=== PATIENT | male | born 1995 | race Caucasian/White ===

== ENCOUNTER 2016-10-28 21:39 | Observation (INO) | payer OTHER ==
[~2016-10-28] VITALS: Ht 182.9 cm; Wt 78.0 kg
[2016-10-28] MEDS ORDERED: FAMOTIDINE IV INJ 20 MG in DEXTROSE 5% 100ML 100 ML IV STA (22:01)
[2016-10-28] MEDS ORDERED: SODIUM CHLORIDE 0.9% 1000ML 2,000 ML IV STA (22:01)
[2016-10-28] MEDS ORDERED: ONDANSETRON INJ 2 MG/ML 2 ML VIAL IV STA (22:01)
[2016-10-28] MEDS ORDERED: MoRPHine SULFATE 4 MG/ML 1 ML CARP\\VIAL IV STA (22:03)
[2016-10-28] MEDS ORDERED: IBUP-1277 PO (22:05)
[2016-10-28] MEDS ORDERED: FAMOTIDINE 20MG/102 ML D5W ONE (22:27)
[2016-10-28 22:35] LABS: URINE APPEARANCE CLEAR (CLEAR); URINE BILIRUBIN NEG (NEG); URINE COLOR YELLOW; URINE NITRITE NEG (NEG); URINE SPECIFIC GRAVITY 1.021 (1.000-1.030); UROBILINOGEN NEG (NEG); ZZUR CULT IF INDIC CLEAN CATCH NO
[2016-10-28 22:35] LABS: BASO % 0.1 %; BASO ABS # 0.02 K/uL (0-0.2); COMPLETE YES; EOS % 0.2 %; HEMATOCRIT 41.3 % (42-52); IG% 0.2 %; LYMPH % 7.6 %; LYMPH ABS # 1.16 K/uL (1.2-3.4); MEAN CELL VOLUME 87.3 fL (80-100); MEAN CORPUSCULAR HEMOGLOBIN 31.1 pg (25-34); MEAN CORPUSCULAR HGB CONC 35.6 g/dl (32-36); MEAN PLATELET VOLUME 9.7 fL (7.4-10.4); MONO % 9.3 %; NEUT % 82.6 %; PLATELET COUNT 232 K/uL (130-400); RED BLOOD COUNT 4.73 M/uL (4.7-6.1); WHITE BLOOD COUNT 15.33 K/uL (4.8-10.8)
[2016-10-28 22:36] LABS: MANUAL MICROSCOPIC REQUIRED? NO; REVIEW REQ? NO
[2016-10-28 23:00] LABS: BUN/CREATININE RATIO 11.8 (10-20); CALCIUM 9.3 mg/dl (8.5-10.1); CREATININE 1.2 mg/dl (0.60-1.40); POTASSIUM 3.3 mmol/L (3.5-5.1)
[2016-10-29] VITALS (9 sets, daily range): BP systolic 102–133; BP diastolic 56–75; PULSE 75–108; TEMP 36.8–37.8; O2SAT 87–97; Ht 182.9 cm; Wt 78.0 kg
[2016-10-29] MEDS ORDERED: POTASSIUM CHLORIDE 10 MEQ TABCR PO STA (00:11)
[2016-10-29] MEDS ORDERED: MoRPHine SULFATE 4 MG/ML 1 ML CARP\\VIAL IV STA ×2 (00:14→03:15)
[2016-10-29] MEDS ORDERED: OPTIRAY 320 IV PRN (02:00)
[2016-10-29] MEDS ORDERED: CEFOXITIN SOD 2 GM VIAL IV STA (02:51)
[2016-10-29] MEDS ORDERED: SODIUM CHLORIDE 0.9% 1000ML 1,000 ML IV STA (03:15)
[2016-10-29] MEDS ORDERED: MIDAZOLAM HCL 1 MG/ML 2ML VIAL ONE (03:17)
[2016-10-29] MEDS ORDERED: FENTANYL CITRATE INJ 50 MCG/1 ML 2 ML VIAL ONE (03:17)
[2016-10-29] MEDS ORDERED: KETOROLAC TROMETHAMINE 30 MG/ML VIAL IV. PRN (03:30)
[2016-10-29] MEDS ORDERED: ONDANSETRON INJ 2 MG/ML 2 ML VIAL IV PRN ×2 (03:30→04:00)
[2016-10-29] MEDS ORDERED: HYDROmorphone INJ 2 MG/ML SYR/VIAL IV PRN (03:30)
[2016-10-29] MEDS ORDERED: PROMETHAZINE HCL INJ 12.5 MG in SODIUM CHLORIDE 0.9% 50ML 50 ML IV PRN (03:30)
[2016-10-29] MEDS ORDERED: ATROPINE SULFATE 0.1 MG/ML 5ML SYR IV PRN (03:30)
--- NOTE | 2016-10-29 03:45 | EMERGENCY ROOM VISIT NOTE ---
History First contact with patient: 21:49 Chief Complaint: ABDOMINAL PAIN Stated Complaint: REALLY BAD STOMACH ACHE Nursing Triage Summary: ABD PAIN N/V History of Present Illness The patient is a 20 year old male who presents to the Emergency Room with complaints of nausea, vomiting and severe lower abdominal pain for the past day. Nothing makes the pain better or worse. He describes as aching, 8 out of 10. It does not radiate. Patient denies chest pain, dyspnea, fever, chills, diarrhea, back pain, testicular pain, penile pain. No history of similar symptoms in the past. He states he had abdominal surgery when he was child but is unsure why. Review of Systems See HPI for pertinent positives & negatives. A total of 10 systems reviewed and were otherwise negative. Past Medical/Surgical History None Social History Smoking Status: Never Smoker Smokeless Tobacco Use: No Alcohol Use: none Drug Use: none Occupation Status: [employer] student Current/Historical Medications Scheduled Ibuprofen (Advil), 200-600 MG PO Q4H Allergies Coded Allergies: No Known Allergies (Unverified , 10/28/16) Physical Exam Vital Signs Date Time Temp Pulse Resp B/P Pulse Ox O2 Delivery O2 Flow Rate FiO2 10/29/16 01:57 111 18 106/45 96 Room Air 10/29/16 00:15 82 18 115/48 98 Room Air 10/28/16 23:15 97 18 137/62 100 Room Air 10/28/16 22:14 100 Room Air 10/28/16 21:42 36.9 88 18 122/53 100 Room Air Physical Exam VITALS: Vitals are noted on the nurse's note and reviewed by myself. Vital signs stable. GENERAL: Pleasant male, in no acute distress, nondiaphoretic, well-developed well-nourished. SKIN: The skin was without rashes, erythema, edema, or bruising. There is no tenting of the skin. Capillary reflex less than 2 seconds. HEAD: Normocephalic atraumatic. EARS: External auditory canals clear, tympanic membranes pearly max without erythema or effusion bilaterally. EYES: Pupils equal round and reactive to light and accommodation. Conjunctivae without injection, sclerae without icterus. Extraocular movements intact. NOSE: Patent, turbinates without inflammation or discharge. MOUTH: Mucous membranes mildly dry pharynx without erythema or exudate. Uvula midline. Airway patent. Tongue does not deviate. NECK: Supple without nuchal rigidity. No lymphadenopathy. No thyromegaly. Cervical spine is nontender. No JVD. HEART: Regular rate and rhythm without murmurs gallops or rubs. LUNGS: Clear to auscultation bilaterally without wheezes, rales or rhonchi. No dullness to percussion. No retractions or accessory muscle use. ABDOMEN: Positive bowel sounds x 4. Normal tympanic percussion. Soft, tender to palpation lower abdomen, no CVA tenderness, without masses or organomegaly. Mcnair sign negative. No guarding or rebound tenderness. MUSCULOSKELETAL: No muscle atrophy, erythema, or edema noted. NEURO: Patient was alert and oriented to person place and time. Normal sensation to light and sharp touch. No focal neurological deficits. Medical Decision & Procedures Laboratory Results 10/28/16 22:14 Red Blood Count 4.73, Mean Corpuscular Volume 87.3, Mean Corpuscular Hemoglobin 31.1, Mean Corpuscular Hemoglobin Concent 35.6, Mean Platelet Volume 9.7, Neutrophils (%) (Auto) 82.6, Lymphocytes (%) (Auto) 7.6, Monocytes (%) (Auto) 9.3, Eosinophils (%) (Auto) 0.2, Basophils (%) (Auto) 0.1, Neutrophils # (Auto) 12.67, Lymphocytes # (Auto) 1.16, Monocytes # (Auto) 1.42, Eosinophils # (Auto) 0.03, Basophils # (Auto) 0.02 10/28/16 22:14 Test 10/28/16 22:14 10/28/16 22:16 White Blood Count 15.33 K/uL (4.8-10.8) Red Blood Count 4.73 M/uL (4.7-6.1) Hemoglobin 14.7 g/dL (14.0-18.0) Hematocrit 41.3 % (42-52) Mean Corpuscular Volume 87.3 fL (80-100) Mean Corpuscular Hemoglobin 31.1 pg (25-34) Mean Corpuscular Hemoglobin Concent 35.6 g/dl (32-36) Platelet Count 232 K/uL (130-400) Mean Platelet Volume 9.7 fL (7.4-10.4) Neutrophils (%) (Auto) 82.6 % Lymphocytes (%) (Auto) 7.6 % Monocytes (%) (Auto) 9.3 % Eosinophils (%) (Auto) 0.2 % Basophils (%) (Auto) 0.1 % Neutrophils # (Auto) 12.67 K/uL (1.4-6.5) Lymphocytes # (Auto) 1.16 K/uL (1.2-3.4) Monocytes # (Auto) 1.42 K/uL (0.11-0.59) Eosinophils # (Auto) 0.03 K/uL (0-0.5) Basophils # (Auto) 0.02 K/uL (0-0.2) RDW Standard Deviation 37.9 fL (36.4-46.3) RDW Coefficient of Variation 11.8 % (11.5-14.5) Immature Granulocyte % (Auto) 0.2 % Immature Granulocyte # (Auto) 0.03 K/uL (0.00-0.02) Anion Gap 12.0 mmol/L (3-11) Est Creatinine Clear Calc Drug Dose 108.7 ml/min Estimated GFR () 101.0 Estimated GFR (Non- 87.1 BUN/Creatinine Ratio 11.8 (10-20) Calcium Level 9.3 mg/dl (8.5-10.1) Total Bilirubin 1.1 mg/dl (0.2-1) Direct Bilirubin 0.2 mg/dl (0-0.2) Aspartate Amino Transf (AST/SGOT) 89 U/L (15-37) Alanine Aminotransferase (ALT/SGPT) 36 U/L (12-78) Alkaline Phosphatase 101 U/L (45-117) Total Protein 9.2 gm/dl (6.4-8.2) Albumin 5.0 gm/dl (3.4-5.0) Lipase 138 U/L (73-393) Urine Color YELLOW Urine Appearance CLEAR (CLEAR) Urine pH 7.0 (4.5-7.5) Urine Specific [place] 1.021 (1.000-1.030) Urine Protein NEG (NEG) Urine Glucose (UA) NEG (NEG) Urine Ketones NEG (NEG) Urine Occult Blood NEG (NEG) Urine Nitrite NEG (NEG) Urine Bilirubin NEG (NEG) Urine Urobilinogen NEG (NEG) Urine Leukocyte Esterase NEG (NEG) Medications Administered Medications (Trade) Dose Ordered Sig/Cesario Route Start Time Stop Time Status Last Admin Dose Admin Sodium Chloride (Nss 1000ml) 2,000 ml @ 999 mls/hr Q2H1M STAT IV 10/28/16 22:01 10/29/16 00:01 DC 10/28/16 22:16 999 MLS/HR Ondansetron HCl 4 mg 4 mg NOW STAT IV 10/28/16 22:01 10/28/16 22:02 DC 10/28/16 22:21 4 MG Famotidine/ Dextrose (Pepcid IV Inj/ D5 100ml) 102 ml @ 200 mls/hr NOW STAT IV 10/28/16 22:01 10/28/16 22:31 DC 10/28/16 22:01 200 MLS/HR Morphine Sulfate (MoRPHine SULFATE INJ) 4 mg NOW STAT IV 10/28/16 22:03 10/28/16 22:06 DC 10/28/16 22:23 4 MG Potassium Chloride (Klor-Con M10) 20 meq NOW STAT PO 10/29/16 00:11 10/29/16 00:12 DC 10/29/16 00:22 20 MEQ Morphine Sulfate (MoRPHine SULFATE INJ) 4 mg NOW STAT IV 10/29/16 00:14 10/29/16 00:15 DC 10/29/16 00:22 4 MG Cefoxitin Sodium (Mefoxin IV) 2,000 mg NOW STAT IV 10/29/16 02:51 10/29/16 02:52 DC 10/29/16 03:26 2,000 MG Morphine Sulfate 4 mg 4 mg NOW STAT IV 10/29/16 03:15 10/29/16 03:16 DC 10/29/16 03:30 4 MG Sodium Chloride (Nss 1000ml) 1,000 ml @ 125 mls/hr Q8H STAT IV 10/29/16 03:15 10/29/16 03:38 DC 10/29/16 03:15 125 MLS/HR ED Course Prior records/ancillary studies reviewed. Triage Nursing notes reviewed. The patient's history was concerning for abdominal pain. Differential diagnosis: Etiologies such as appendicitis, diverticulitis, PUD, biliary pathology, UTI, pancreatitis, obstruction, mesenteric ischemia, aortic pathology, infections, inflammatory bowel disease, renal colic, as well as others were entertained. Physical examination findings: As above. ER treatment provided: Morphine, Zofran, IV fluids On reassessment the patient felt better. Diagnostics interpreted by me: The labs revealed leukocytosis. Hypokalemia. Negative urine Imaging studies: CT concerning for appendicitis per stat radiology Ultrasound was read by stat radiology and unremarkable of the kidneys Consultation: A consultation was placed with the surgeon, Dr. Harris and recommends antibiotics. The case was discussed and diagnostics were reviewed. The patient was evaluated in the ER for further treatment. Exam and history seem consistent with acute appendicitis. Possible rupture on CT. Patient was started on antibiotics. He was evaluated by surgery. His pain was managed. Please see the surgeons dictation for further information regarding their treatment plan.By the evaluation outlined above emergent etiologies such as diverticulitis, PUD, biliary pathology, UTI, pancreatitis, obstruction, mesenteric ischemia, aortic pathology, infections, inflammatory bowel disease, renal colic, as well as others were deemed relatively unlikely. The pt informed about the findings as listed above. All questions were answered and pleased with the treatment. Case reviewed by attending Medical Decision As above Impression Primary Impression: Appendicitis Departure Information Dispostion Being Evaluated By Surgeon Condition FAIR Referrals No Doctor, Assigned (PCP) Patient Instructions My [facility] Problem Qualifiers Primary Impression: Appendicitis Appendicitis type: acute appendicitis Acute appendicitis type: unspecified acute appendicitis type Qualified Codes: K35.80 - Unspecified acute appendicitis
--- NOTE | 2016-10-29 03:46 | History and Physical ---
History & Physical Date Oct 29, 2016. History of Present Illness The patient is a 20 year old male with appendicitis. He came into the ED with complaints of nausea, vomiting and severe lower abdominal pain for the past day. Nothing makes the pain better or worse. The pain began initially and was followed by the N/V. The pain is mainly RLQ. Patient denies chest pain, dyspnea, fever, chills, diarrhea, back pain, testicular pain, penile pain. No history of similar symptoms in the past. A CT scan shows acute appendicitis. Past Medical/Surgical History PMHx -seizure disorder as a child, resolved PSHx -wisdom teeth Additional History Hepatic Disease: No Endocrine Disorder: No Kidney Disease: No Hypertension: No Heart Disease: No Bleeding Tendencies: No Infectious Diseases: No Allergies Coded Allergies: No Known Allergies (Unverified , 10/28/16) Home Medications Scheduled Ibuprofen (Advil), 200-600 MG PO Q4H Physical Examination Skin: warm/dry, no rash Eyes: normal inspection, EOMI, sclerae normal ENT: normal ENT inspection Head: normocephalic, atraumatic Neck: supple, no adenopathy, trachea midline Respiratory/Chest: lungs clear, normal breath sounds, no respiratory distress Cardiovascular: regular rate, rhythm, no edema, no murmur Abdomen / GI: normal bowel sounds, + pertinent finding (RLQ tenderness with guarding; no hernias, good BS, no masses) Back: normal inspection Extremities: normal inspection, normal range of motion Genitourinary - Male: normal male genitalia Neurologic/Psych: no motor/sensory deficits, alert, normal reflexes, oriented x 3 Addiitonal Comments: CT scan with 11mm appendix with appendicolith; small amount of fluid in the pelvis; no abscess or phlegmon Diagnosis Acute appendicitis ASA Classification: ASA Class I Plan of Treatment -IV mefoxin -IVF -to OR for lap appendectomy
[2016-10-29] MEDS ORDERED: ACETAMINOPHEN 325 MG TAB PO PRN (04:00)
[2016-10-29] MEDS ORDERED: OXYCODONE/ACETAMINOPHEN 5-325 TAB PO PRN (04:00)
[2016-10-29] MEDS ORDERED: PROMETHAZINE HCL INJ 25 MG in SODIUM CHLORIDE 0.9% 50ML 50 ML IV PRN (04:00)
[2016-10-29] MEDS ORDERED: ALUMINUM/MAGNESIUM/SIMETH (MAALOX MAX) 30 ML UDC PO PRN (04:00)
[2016-10-29] MEDS ORDERED: MoRPHine SULFATE 2 MG/ML CARP IV PRN (04:00)
[2016-10-29] MEDS ORDERED: MoRPHine SULFATE 4 MG/ML 1 ML CARP\\VIAL IV PRN (04:00)
[2016-10-29] MEDS ORDERED: IV FLUIDS COMPLETED PRN (04:15)
[2016-10-29] MEDS ORDERED: NEOSTIGMINE METHYLSULFATE 5 MG/5 ML SYR ONE (04:37)
[2016-10-29] MEDS ORDERED: LIDOCAINE HCL 2% 2 ML VIAL (20MG/ML) ONE (04:37)
[2016-10-29] MEDS ORDERED: GLYCOPYRROLATE INJ 0.2 MG/ML VIAL ONE (04:37)
[2016-10-29] MEDS ORDERED: ONDANSETRON INJ 2 MG/ML 2 ML VIAL ONE (04:37)
[2016-10-29] MEDS ORDERED: METOCLOPRAMIDE HCL INJ 5 MG/ML 2 ML VIAL ONE (04:37)
[2016-10-29] MEDS ORDERED: ROCURONIUM BROMID 50MG/5ML SYR ONE (04:37)
[2016-10-29] MEDS ORDERED: PROPOFOL IV EMULSION 10 MG/ML 20 ML VIAL IV ONE (04:37)
[2016-10-29] MEDS ORDERED: BUPIVACAINE/EPINEPHRINE 0.5% MPF 1:200,000 30 ML VIAL INJ ONE (04:51)
--- NOTE | 2016-10-29 05:08 | [facility] Post Operative Brief Note ---
Immediate Operative Summary Operative Date Oct 29, 2016. Pre-Operative Diagnosis Acute Appendicitis Post-Operative Diagnosis Acute Appendicitis Procedure(s) Performed Laparoscopic Appendectomy Surgeon Dr.Michael Efren Harris Core Mounter Surgeon(s) None Estimated Blood Loss 5ml Findings Near gangrenous; mateo-appendiceal purulence Specimens A. Appendix Drains none Anesthesia GETA w/marcaine Complication(s) None Disposition Recovery Room / PACU
--- NOTE | 2016-10-29 05:52 | Anesthesiology Progress Note ---
Anesthesia Post Op Note Date & Time Oct 29, 2016 at 05:52 Vital Signs Vital Signs Past 12 Hours Date Time Temp Pulse Resp B/P Pulse Ox O2 Delivery O2 Flow Rate FiO2 10/29/16 05:35 94 23 107/36 100 Room Air 10/29/16 05:25 85 23 108/37 100 Room Air 10/29/16 05:15 37.6 90 23 112/43 100 Mask 5 10/29/16 03:55 88 18 126/75 99 10/29/16 01:57 111 18 106/45 96 Room Air 10/29/16 00:15 82 18 115/48 98 Room Air 10/28/16 23:15 97 18 137/62 100 Room Air 10/28/16 22:14 100 Room Air 10/28/16 21:42 36.9 88 18 122/53 100 Room Air Notes Mental Status: alert / awake / arousable, participated in evaluation Pt Amnestic to Procedure: Yes Nausea / Vomiting: adequately controlled Pain: adequately controlled Airway Patency, RR, SpO2: stable & adequate BP & HR: stable & adequate Hydration State: stable & adequate Anesthetic Complications: no major complications apparent
--- NOTE | 2016-10-29 06:08 | OPERATIVE REPORT ---
DATE OF OPERATION: 10/29/2016 PREOPERATIVE DIAGNOSIS: Acute appendicitis. POSTOPERATIVE DIAGNOSIS: Same with near gangrenous changes and some periappendiceal purulence. PROCEDURE PERFORMED: Laparoscopic appendectomy. SURGEON: Dr. Donnell Harris. METAL FLOW COORDINATOR: None. ANESTHESIA: General endotracheal with 0.5% Marcaine with epinephrine local, 20 mL. ESTIMATED BLOOD LOSS: 5 mL. COMPLICATIONS: None. DRAINS: None. SPECIMENS: Appendix to pathology. INDICATION FOR PROCEDURE: This is a 20-year-old male who came in complaining of a day of diffuse abdominal pain, which localized to his right lower quadrant associated nausea and vomiting. He was seen in the ER, underwent a complete workup including a CT scan which showed a dilated appendix consistent with acute appendicitis. On exam, he had peritoneal signs. We will plan on take him to the OR for laparoscopic appendectomy. He understands the risk of an open procedure, postop reoperation or CT guided drainage of an abscess, ileus, bleeding and wound problems including infection. DESCRIPTION OF PROCEDURE: The patient was taken to the OR and underwent excellent general endotracheal anesthesia. His abdomen was prepped and draped in normal sterile fashion. He was placed in head down and rolled to left position. Transverse supraumbilical incision was made and dissection was taken down to identify his anterior fascia. A 2 Vicryls were placed in either side of midline. The midline was incised sharply. A blunt Mayi trocar was then inserted after it was determined there were no adhesions near our previous transverse right upper quadrant incision when it was made as a child. Once the trocar was in, good pneumoperitoneum was achieved to 15 mmHg pressure. A 5 suprapubic, a 5 right upper quadrant, and a 12 left lower quadrant port were placed in normal fashion. His cecum was grasped on the tenia and placed on tension. The appendix was obviously identified, it was near gangrenous. There was a small amount of purulence around this. This was irrigated out with tension placed on the tip of the appendix. The mesoappendix was identified and taken down with a harmonic scalpel. This was taken down to the base of the appendix. Appendix was then transected with a purple MIGNON stapler. Appendix was brought out with an Endobag through the left lower quadrant incision. The port was removed and pneumoperitoneum was reestablished. Staple line had a small bleeder and therefore a clip was placed on this to help control bleeding. Abdomen was then irrigated out with a liter of saline. There was no further purulence, no sign of abscess. No other abnormalities were noted. Terminal ileum was normal in appearance. Once this was determined, the ports removed and pneumoperitoneum was decompressed. A 0 Vicryl was used to close the fascial defect and the supraumbilical incision and 0 Vicryl was used to close the fascial defect in the left lower quadrant incision. A 0.5% Marcaine with epinephrine local was used to create a local field block. The deep tissues were closed with interrupted Vicryls and interrupted Vicryl was used to close the skin. Steri-Strips and benzoin were used to reinforce the incision. Sterile dressings were applied. The patient tolerated the procedure well without any complications, sent to postop recovery area for a period of observation and then be sent to floor for his care. I attest to the content of the Intraoperative Record and any orders documented therein. Any exceptio ns are noted below.
[2016-10-29] MEDS: LACTATED RINGER'S 1000ML 1,000 ML IV SCH ×2 (06:59→13:15)
--- NOTE | 2016-10-29 07:18 | DIAGNOSTIC IMAGING REPORT ---
ULTRASOUND KIDNEYS AND BLADDER CLINICAL HISTORY: Left flank pain. COMPARISON STUDY: No priors. TECHNIQUE: Real-time, grayscale, and color flow sonography of the kidneys and bladder is performed. Images are reviewed in the transverse and longitudinal planes. FINDINGS: Kidneys: The kidneys are normal in size and echotexture. The right kidney measures 10.1 x 4.1 x 4.9 cm and the left kidney measures 11.1 x 5.1 x 6.8 cm. There is no hydronephrosis. No shadowing renal calculi are identified. There is no sonographic evidence of contour deforming renal mass lesion. No perinephric fluid is identified. Bladder: The bladder is normal in appearance. Bilateral ureteral jets were seen. IMPRESSION: Unremarkable sonographic assessment of the kidneys and bladder. Electronically signed by: Edwin Mcknight M.D. 10/29/2016 7:16 AM Dictated Date/Time: 10/29/2016 7:16 AM
--- NOTE | 2016-10-29 07:25 | DIAGNOSTIC IMAGING REPORT ---
ABDOMEN AND PELVIS CT WITH IV AND ORAL CONTRAST CT DOSE: 346.47 mGy.cm HISTORY: Flank pain severe lower abd pain TECHNIQUE: Multiaxial CT images of the abdomen and pelvis were performed following the use of intravenous and oral contrast. COMPARISON STUDY: None. FINDINGS: Lung bases are clear. Liver spleen and pancreas are unremarkable. Kidneys enhance uniformly. Spleen is unremarkable. The appendix is moderately distended at 11 mm. An appendicolith is present. There is trace amount of free fluid within the pelvic cul-de-sac. IMPRESSION: 1. Acute appendicitis. 2. Appendicolith. 3. Trace amount of free fluid within the pelvic cul-de-sac which may indicate a partial appendiceal rupture versus reactive fluid. 4. Nonobstructive bowel pattern. 5. No evidence for abscess or collection. Electronically signed by: Neal Contreras M.D. 10/29/2016 7:24 AM Dictated Date/Time: 10/29/2016 6:58 AM
[2016-10-29] MEDS ORDERED: CEFOXITIN IV 2,000 MG in DEXTROSE 5% 50ML 50 ML IV SCH (10:00)
[2016-10-29] MEDS ORDERED: OXYC-57 PO (13:04)
--- NOTE | 2016-10-29 13:10 | Discharge Instructions ---
Discharge Instructions Admission Reason for Admission: Appendicitis Discharge Discharge Diagnosis / Problem: S/p Laparoscopic Appendectomy Discharge Goals Goal(s): Decrease discomfort Activity Recommendations Activity Limitations: as noted below Exercise/Sports Limitations: until after follow-up appointment Driving or Machine Use: May not drive or operate heavy machinery while taking narcotic pain medication No heavy lifting over 20 pounds for 2 weeks Light activity and walking is recommended . Instructions / Follow-Up Instructions / Follow-Up Follow-up in surgical office in 2 weeks Please call office at [phone] to make an appointment with Dr. Harris or Triny Hernandez PA-C Current Hospital Diet Patient's current hospital diet: Full Liquid Diet Discharge Diet Recommended Diet: Regular Diet Fluid Restriction: None Procedures Procedures Performed: Laparoscopic Appendectomy Pending Studies Studies pending at discharge: no Medical Emergencies . Who to Call and When: Medical Emergencies: If at any time you feel your situation is an emergency, please call 911 immediately. . Non-Emergent Contact Non-Emergency issues call your: Primary Care Provider, Surgeon Past History Medical & Surgical History: (1) Appendicitis . "Provider Documentation" section prepared by Triny Hernandez PA-C VTE Core Measure Inpt VTE Proph given/why not?: [facility] [place] Search Results: patient reviewed within database, no issues identified
--- NOTE | 2016-10-29 13:22 | Surgery Progress Note ---
Surgery Progress Note Date of Service Oct 29, 2016. Subjective Post OP Day: POST-Op Day #0, operation today at 3 am + ambulating, + diet, + feeling well, + pain controlled, No bowel movement, No nausea, No vomiting + pain is present, RLQ slightly different than pre-operatively Tolerating diet Ambulating and urinating without difficulty Objective Vital Signs: Date Time Temp Pulse Resp B/P Pulse Ox O2 Delivery O2 Flow Rate FiO2 10/29/16 13:16 36.8 75 18 97 Room Air 10/29/16 11:15 36.8 75 18 117/75 97 Room Air 10/29/16 09:00 36.9 95 18 102/63 95 Room Air 10/29/16 07:51 Nasal Cannula 2.0 10/29/16 07:38 37.3 108 18 117/57 94 Room Air 10/29/16 06:41 92 Nasal Cannula 2.0 10/29/16 06:40 37.8 108 14 133/63 87 Room Air 10/29/16 06:24 37.6 108 16 126/64 93 Room Air 10/29/16 06:10 93 Room Air 10/29/16 06:10 37.6 108 14 126/64 95 Room Air 10/29/16 05:45 37.5 106 20 110/54 100 Room Air 10/29/16 05:35 94 23 107/36 100 Room Air 10/29/16 05:25 85 23 108/37 100 Room Air 10/29/16 05:15 37.6 90 23 112/43 100 Mask 5 10/29/16 03:55 88 18 126/75 99 10/29/16 01:57 111 18 106/45 96 Room Air 10/29/16 00:15 82 18 115/48 98 Room Air 10/28/16 23:15 97 18 137/62 100 Room Air 10/28/16 22:14 100 Room Air 10/28/16 21:42 36.9 88 18 122/53 100 Room Air General Appearance: WD/WN, no apparent distress Head: normocephalic, atraumatic Abdomen: non distended, soft, + tenderness (RLQ, expected post-operatively) Incision(s): clean (dressings clean, did not remove ) Laboratory Results: Results Past 24 Hours Test 10/28/16 22:14 10/28/16 22:16 Range/Units White Blood Count 15.33 4.8-10.8 K/uL Red Blood Count 4.73 4.7-6.1 M/uL Hemoglobin 14.7 14.0-18.0 g/dL Hematocrit 41.3 42-52 % Mean Corpuscular Volume 87.3 80-100 fL Mean Corpuscular Hemoglobin 31.1 25-34 pg Mean Corpuscular Hemoglobin Concent 35.6 32-36 g/dl Platelet Count 232 130-400 K/uL Mean Platelet Volume 9.7 7.4-10.4 fL Neutrophils (%) (Auto) 82.6 % Lymphocytes (%) (Auto) 7.6 % Monocytes (%) (Auto) 9.3 % Eosinophils (%) (Auto) 0.2 % Basophils (%) (Auto) 0.1 % Neutrophils # (Auto) 12.67 1.4-6.5 K/uL Lymphocytes # (Auto) 1.16 1.2-3.4 K/uL Monocytes # (Auto) 1.42 0.11-0.59 K/uL Eosinophils # (Auto) 0.03 0-0.5 K/uL Basophils # (Auto) 0.02 0-0.2 K/uL RDW Standard Deviation 37.9 36.4-46.3 fL RDW Coefficient of Variation 11.8 11.5-14.5 % Immature Granulocyte % (Auto) 0.2 % Immature Granulocyte # (Auto) 0.03 0.00-0.02 K/uL Sodium Level 138 136-145 mmol/L Potassium Level 3.3 3.5-5.1 mmol/L Chloride Level 101 98-107 mmol/L Carbon Dioxide Level 25 21-32 mmol/L Anion Gap 12.0 3-11 mmol/L Blood Urea Nitrogen 14 7-18 mg/dl Creatinine 1.20 0.60-1.40 mg/dl Est Creatinine Clear Calc Drug Dose 108.7 ml/min Estimated GFR () 101.0 Estimated GFR (Non- 87.1 BUN/Creatinine Ratio 11.8 10-20 Random Glucose 101 70-99 mg/dl Calcium Level 9.3 8.5-10.1 mg/dl Total Bilirubin 1.1 0.2-1 mg/dl Direct Bilirubin 0.2 0-0.2 mg/dl Aspartate Amino Transf (AST/SGOT) 89 15-37 U/L Alanine Aminotransferase (ALT/SGPT) 36 12-78 U/L Alkaline Phosphatase 101 45-117 U/L Total Protein 9.2 6.4-8.2 gm/dl Albumin 5.0 3.4-5.0 gm/dl Lipase 138 73-393 U/L Urine Color YELLOW Urine Appearance CLEAR CLEAR Urine pH 7.0 4.5-7.5 Urine Specific [place] 1.021 1.000-1.030 Urine Protein NEG NEG Urine Glucose (UA) NEG NEG Urine Ketones NEG NEG Urine Occult Blood NEG NEG Urine Nitrite NEG NEG Urine Bilirubin NEG NEG Urine Urobilinogen NEG NEG Urine Leukocyte Esterase NEG NEG Assessment & Plan S/p Laparoscopic Appendectomy - vitals stable post-op - pain controlled - tolerating regular diet - Urinating and ambulating without difficulty Plan: Discharge home later today Rx for Percocet given Instructions given Follow-up in surgical office in 2 weeks advised water and stool softener with the narcotic I have discussed this patient with Dr. Harris who agrees with above assessment and plan
--- NOTE | 2016-10-30 15:15 | Discharge Summary ---
Discharge Summary Admission Date: Oct 29, 2016 at 03:51 Discharge Date: Oct 29, 2016 Discharge Disposition: Home Principal Diagnosis: Acute Appendicitis, s/p laparoscopic appendectomy Procedures: Laparoscopic appendectomy Consultations: None Medication Reconciliation New Medications: Oxycodone/Acetaminophen 5MG/325MG (Percocet 5MG/325MG) Tab 1-2 TABLETS PO Q1V-p6e PRN for Pain, #30 TAB Continued Medications: Ibuprofen (Advil) 200 Mg Tab 200-600 MG PO Q4H, TAB Discharge Exam Review of Systems: Constitutional: No chills, No fever Abdomen: + pain (RLQ, Soreness), No nausea, No vomiting Genitourinary - Male: No hematuria, No urinary frequency Physical Exam: General Appearance: WD/WN, no apparent distress Eyes: normal inspection, PERRL Abdomen / GI: soft, no organomegaly, no pulsatile mass, + tenderness (RLQ tenderness, as expected post-operatively) Extremities: normal inspection Neurologic/Psychiatric: alert, oriented x 3 Skin: normal color, warm/dry, no rash Hospital Course Lior presented to emergency department early in the morning on 10/29/2016 with RLQ abdominal pain and was found to have acute appendicitis. He was taken to the operating room and underwent Laparoscopic appendectomy. Lior tolerated procedure well and was transferred to the 3rd floor post-operatively. He was given IV fluids, IV antibiotics (Cefoxitin 2 gm iv q 8 hours), IV zofran, IV Morphine, PO Narcotics and diet was advanced as tolerated. Lior was doing well in mid afternoon of the day of his surgery and expressed wanting to go home. He tolerated full liquids, pain controlled, ambulated, and urinated without difficulty. Overall hospital course was uneventful. Pt was discharged home in the late afternoon. Total Time Spent: Greater than 30 minutes This includes examination of the patient, discharge planning, medication reconciliation, and communication with other providers. Discharge Instructions Please refer to the electronic Patient Visit Report (Discharge Instructions) for additional information. Follow-Up 2 weeks in surgical office
== END 2016-10-29 16:51 | disposition home or self-care (01) ==
LOC: ENRESERVDT → ENRESERVTM → C.EDB 21:40 → C.MSW 10-29 03:51
PROVIDERS: ADMIT Surgery; ATTEND Surgery
DX: K35.80 Unspecified acute appendicitis (principal); E87.6 Hypokalemia